=== PATIENT | male | born 1950 | race Caucasian/White ===

== ENCOUNTER 2022-07-01 10:13 | Emergency (ER) | payer MEDICARE, BC ==
[2022-07-01] MEDS ORDERED: Sodium Chloride 0.9% 10 ML Syringe FLUSH PRN (13:15)
[2022-07-01] MEDS ORDERED: Sodium Chloride 0.9% 100 ML IV SCH (13:15)
[2022-07-01] MEDS ORDERED: Iopamidol 755 Mg/ML 100 ML Bottle IVPUSH ONE (13:15)
[2022-07-01 14:01] LABS: CORONAVIRUS COVID-19 NAA NEGATIVE (NEGATIVE)
== END 2022-07-01 14:40 | disposition home or self-care (01) ==
LOC: JD.ED 10:13
DX: R06.02 Shortness of breath (principal); M79.10 Myalgia, unspecified site; Z20.822 Contact with and (suspected) exposure to COVID-19
CPT/HCPCS: 0241U; 36415; 71046; 71275; 80053; 81001; 83880; 85025; 86140; 99285; J3490; Q9967; 99284

== ENCOUNTER 2022-08-19 17:43 | Emergency (ER) | payer MEDICARE, BC ==
[2022-08-19] MEDS ORDERED: Sodium Chloride 0.9% 10 ML Syringe FLUSH PRN (19:07)
[2022-08-19] MEDS ORDERED: Ondansetron 4 MG/2 ML SDV IVPUSH ONE (19:07)
[2022-08-19] MEDS ORDERED: HYDROmorphone 0.5 MG/0.5 ML Syringe IVPUSH ONE (19:09)
[2022-08-19] MEDS ORDERED: Sodium Chloride 0.9% 1,000 ML IV SCH (19:15)
[2022-08-19 20:03] LABS: ESTIMATED GFR 59 mL/min (>60)
[2022-08-19] MEDS ORDERED: Iopamidol 612 MG/ML 100 ML Bottle IVPUSH ONE (20:07)
[2022-08-19] MEDS ORDERED: Sodium Chloride 0.9% 10 ML Syringe FLUSH ONE (20:07)
[2022-08-19 20:25] LABS: CORONAVIRUS COVID-19 NAA NEGATIVE (NEGATIVE)
== END 2022-08-19 22:00 | disposition home or self-care (01) ==
LOC: JD.ED 17:43
DX: A08.4 Viral intestinal infection, unspecified (principal); N40.0 Benign prostatic hyperplasia without lower urinary tract symptoms; Z79.899 Other long term (current) drug therapy; Z90.49 Acquired absence of other specified parts of digestive tract; Z87.891 Personal history of nicotine dependence; Z20.822 Contact with and (suspected) exposure to COVID-19
CPT/HCPCS: 0241U; 36415; 71045; 74177; 80053; 81001; 83690; 85025; 86140; 87651; 96361; 96374; 96375; 99284; J1170; J2405; J3490; J7030; Q9967